=== PATIENT | female | born 1980 | race Caucasian/White ===

== ENCOUNTER 2020-06-10 20:25 | Emergency (ER) | payer MEDICAID ==
[~2020-06-10] VITALS: Ht 149.9 cm; Wt 68.0 kg
[2020-06-10 21:02] VITALS: BP_SYST 119
[2020-06-10 22:10] LABS: BILIRUBIN,URINE NEGATIVE (NEGATIVE); BLOOD, URINE 1+ (NEGATIVE); CLARITY/URINE CLEAR (CLEAR); COLOR,URINE YELLOW (YELLOW); GLUCOSE,URINE NEGATIVE (NEGATIVE); KETONES,URINE NEGATIVE (NEGATIVE); LEUKOCYTE ESTERASE ,URINE NEGATIVE (NEGATIVE); NITRITE, URINE NEGATIVE (NEGATIVE); PH,URINE 5.5 (5.0-8.0); PROTEIN URINE NEGATIVE (NEGATIVE); UROBILINOGEN,URINE 0.2 (0.2-1.0)
[2020-06-10 22:21] LABS: BACTERIA,URINE FEW /HPF (None Seen); RBC,URINE 0-3 /HPF (0-3); WBC,URINE 0-3 /HPF (0-3)
[2020-06-10 22:22] LABS: MUCUS,URINE None Seen /LPF (None Seen)
[2020-06-10 22:48] LABS: HEMOGLOBIN 13.1 g/dL (12.0-16.0)
[2020-06-10 22:54] LABS: CALCIUM 8.6 mg/dL (8.4-11.0); CREATININE 0.62 mg/dL (0.55-1.30); POTASSIUM 3.8 mmol/L (3.5-5.1)
[2020-06-10 23:08] LABS: BASOPHILS % (AUTO) 0.4 % (0.0-2.0); EOSINOPHILS # (AUTO) 0.1 K/uL (0.0-0.4); EOSINOPHILS % (AUTO) 0.9 % (0.0-4.0); HEMATOCRIT 39.2 % (36-48); LYMPHOCYTES # (AUTO) 3.1 K/uL (1.0-5.5); LYMPHOCYTES % (AUTO) 27.4 % (20.5-51.5); MEAN CORPUSCULAR HEMOGLOBIN 29 pg (27-31); MEAN CORPUSCULAR HGB CONC 33 % (32-36); MEAN CORPUSCULAR VOLUME 88 fL (79.0-98.0); MONOCYTES # (AUTO) 1.1 K/uL (0.0-1.0); NEUTROPHILS % (AUTO) 61.3 % (40.0-70.0); PLATELET COUNT (AUTO) 281 K/uL (130-430); RED BLOOD CELL COUNT(AUTO) 4.46 MIL/uL (4.2-6.2); RED CELL DISTRIBUTION WIDTH 13.6 % (9.0-15.0); WHITE BLOOD COUNT (AUTO) 11.4 K/uL (4.8-10.8)
[2020-06-10 23:49] VITALS: BP_SYST 119
== END 2020-06-10 23:49 | disposition home or self-care (01) ==
LOC: SED 20:25
DX: H81.399 Other peripheral vertigo, unspecified ear (principal); J45.909 Unspecified asthma, uncomplicated
CPT/HCPCS: 36415; 70450-TC; 76376; 80048; 81000; 81025; 85025; 93005; 99285

== ENCOUNTER 2021-04-09 09:52 | Emergency (ER) | payer MEDICAID ==
[~2021-04-09] VITALS: Ht 149.9 cm; Wt 68.0 kg
[2021-04-09 10:38] VITALS: BP_SYST 109
[2021-04-09] MEDS ORDERED: TRAM50TA PO (10:58)
[2021-04-09 11:10] VITALS: BP_SYST 133
== END 2021-04-09 11:10 | disposition home or self-care (01) ==
LOC: SED 09:52
DX: S09.90XA Unspecified injury of head, initial encounter (principal); J45.909 Unspecified asthma, uncomplicated; Z79.899 Other long term (current) drug therapy; X58.XXXA Exposure to other specified factors, initial encounter; Y93.89 Activity, other specified; Y92.89 Other specified places as the place of occurrence of the external cause; Y99.8 Other external cause status
CPT/HCPCS: 99283

== ENCOUNTER 2021-11-01 15:48 | Emergency (ER) | payer MEDICAID ==
[~2021-11-01] VITALS: Ht 149.9 cm; Wt 68.0 kg
[~2021-11-01 15:48] MED LIST: TRAM50TA PO
--- NOTE | 2021-11-01 16:25 | NUR ---
BIBS WITH C/C OF SOB, COUGH, AND PLEURITIC CHEST WALL PAIN. PT REPORTS HAVING COVID 16 DAYS AGO AND NOW TESTED NEGATIVE WITH HOME ANTIGEN TEST. PT HAS HOME PULSE OXIMETER AND MEASURED 93, SHE CALLED HER PMD AND WAS ADVISED TO COME TO ER FOR CXR AND EVAL. PRESENTS WITH PERSISTENT COUGH, CHEST AND BACK PAIN, AND REPORTS SWELLING OF BILATERAL FEET. PT ALSO REPORTS PAIN IN BILATERAL HANDS WHEN MAKING A FIST.
[2021-11-01 16:28] VITALS: BP_SYST 114
--- NOTE | 2021-11-01 17:00 | NUR ---
41 y/o F recently diagnosed with COVID, presenting to the ED for COVID symptoms over the last 4 days, including cough, congestion, shortness of breath, body aches, chills, and joint pain.
--- NOTE | 2021-11-01 17:30 | NUR ---
ER at bedside examining patient.
[2021-11-01] MEDS ORDERED: ZIT250 PO (20:19)
[2021-11-01] MEDS ORDERED: ALBU8.5H8 INH (20:19)
[2021-11-01] MEDS ORDERED: PRED50TA PO (20:19)
--- NOTE | 2021-11-01 21:41 | NUR ---
Patient given written and verbal discharge instructions and verbalizes understanding. ER MD discussed with patient the results and treatment provided. Patient in stable condition. ID arm band removed. Opportunity for questions provided and answered. Medication side effect fact sheet provided.
[2021-11-01 21:45] VITALS: BP_SYST 114
== END 2021-11-01 21:45 | disposition home or self-care (01) ==
LOC: SED 15:48
DX: J40 Bronchitis, not specified as acute or chronic (principal); R05.9 Cough, unspecified; R06.02 Shortness of breath; R09.81 Nasal congestion; Z79.899 Other long term (current) drug therapy; Z20.822 Contact with and (suspected) exposure to COVID-19
CPT/HCPCS: 36415; 71045; 99284

== ENCOUNTER 2022-06-27 13:01 | Emergency (ER) | payer MEDICAID ==
[~2022-06-27] VITALS: Ht 149.9 cm; Wt 68.0 kg
[~2022-06-27 13:01] MED LIST changes: +ALBU8.5H8 INH; +PRED50TA PO; +ZIT250 PO
[2022-06-27 13:53] VITALS: BP_SYST 112
[2022-06-27] MEDS ORDERED: IBUP-1969 PO (15:23)
[2022-06-27] MEDS ORDERED: TRAM50TA2 PO (15:23)
[2022-06-27] MEDS ORDERED: HYDROcodone/ACETAMIN 10-325 MG TAB PO ONE (15:30)
[2022-06-27] MEDS ORDERED: KETOROLAC TROMETHAMINE 60 MG/2 ML VIAL IM ONE ×2 (15:30→15:37)
[2022-06-27] MEDS ORDERED: HYDROcodone/ACETAMIN 10-325 MG TAB ONE (15:36)
[2022-06-27 15:54] LABS: BILIRUBIN,URINE NEGATIVE (NEGATIVE); BLOOD, URINE 2+ (NEGATIVE); CLARITY/URINE CLEAR (CLEAR); COLOR,URINE YELLOW (YELLOW); GLUCOSE,URINE NEGATIVE (NEGATIVE); KETONES,URINE NEGATIVE (NEGATIVE); LEUKOCYTE ESTERASE ,URINE NEGATIVE (NEGATIVE); NITRITE, URINE NEGATIVE (NEGATIVE); PROTEIN URINE NEGATIVE (NEGATIVE); UROBILINOGEN,URINE 0.2 (0.2-1.0)
[2022-06-27 16:04] LABS: BACTERIA,URINE None Seen /HPF (None Seen); MUCUS,URINE None Seen /LPF (None Seen); RBC,URINE 0-3 /HPF (0-3); WBC,URINE NONE SEEN /HPF (0-3)
[2022-06-27 16:24] VITALS: BP_SYST 112
== END 2022-06-27 16:24 | disposition home or self-care (01) ==
LOC: SED 13:01
DX: M54.30 Sciatica, unspecified side (principal); M54.50 Low back pain, unspecified; J45.909 Unspecified asthma, uncomplicated; Z79.899 Other long term (current) drug therapy
CPT/HCPCS: 99284; 81000; 72100; 81025; 96372; J1885